=== PATIENT | female | born 1950 | race Caucasian/White ===

== ENCOUNTER 2018-04-28 08:30 | Outpatient (RCR) | payer MEDICARE, MEDICAID | END 2018-05-08 | disposition home or self-care (01) | LOC: PTY 08:30 | DX: M19.041 Primary osteoarthritis, right hand (principal); M19.042 Primary osteoarthritis, left hand; R53.83 Other fatigue; M15.9 Polyosteoarthritis, unspecified; M51.36 Other intervertebral disc degeneration, lumbar region | CPT/HCPCS: 97110; 97161; 97165; G8978; G8979 ==

== ENCOUNTER 2018-05-13 08:50 | Outpatient (RCR) | payer MEDICARE, MEDICAID | END 2018-06-07 | disposition home or self-care (01) | LOC: PTY 08:50 | DX: M13.0 Polyarthritis, unspecified (principal); R53.83 Other fatigue; M19.041 Primary osteoarthritis, right hand; M19.042 Primary osteoarthritis, left hand; M15.9 Polyosteoarthritis, unspecified; M51.36 Other intervertebral disc degeneration, lumbar region; M54.5 Low back pain ==

== ENCOUNTER 2018-06-10 07:50 | Outpatient (RCR) | payer MEDICARE, MEDICAID | END 2018-07-08 | disposition home or self-care (01) | LOC: PTY 07:50 | DX: M53.83 Other specified dorsopathies, cervicothoracic region (principal); M13.0 Polyarthritis, unspecified; M19.041 Primary osteoarthritis, right hand; M19.042 Primary osteoarthritis, left hand; M15.9 Polyosteoarthritis, unspecified; M51.36 Other intervertebral disc degeneration, lumbar region; M54.5 Low back pain | CPT/HCPCS: 97110; G8978; G8979; G8980 ==